=== PATIENT | male | born 1985 | race Caucasian/White ===

== ENCOUNTER 2020-11-03 18:29 | Emergency (ER) | payer BC ==
[~2020-11-03] VITALS: Ht 177.8 cm; Wt 90.0 kg
[2020-11-03 19:33] VITALS: BP 151/90
== END 2020-11-03 19:38 | disposition home or self-care (01) ==
LOC: EMS 18:30
DX: R55 Syncope and collapse (principal)
CPT/HCPCS: 82948; 82962; 93005; 99284